=== PATIENT | male | born 1965 | race Caucasian/White ===

== ENCOUNTER 2024-10-09 14:19 | Emergency (ER) | payer OTHER ==
[2024-10-09 14:34] VITALS: BP 125/80; PULSE 74; RESP 15; TEMP 98.4; BMI 28.0
[2024-10-09] MEDS: CEFTRIAXONE 1,000 MG in DEXTROSE 5%-WATER - 50 ML IVPB ONE ×2 (14:40)
== END 2024-10-09 15:20 | disposition home or self-care (01) ==
LOC: FER 14:19
DX: L03.115 Cellulitis of right lower limb (principal); M25.561 Pain in right knee
CPT/HCPCS: 99284-25